=== PATIENT | male | born 1965 | race Caucasian/White ===

== ENCOUNTER → 2017-03-19 | Outpatient (CLI) | payer OTHER ==
--- NOTE | 2017-03-19 15:43 | RADIOLOGY REPORT PS360 ---
US RUQ-(ABD LTD)1ORGAN/QUAD/FU HISTORY: RUQ PAIN ORDERING PHYSICIAN: Reginald Perez MD PATIENT AGE: 51 years COMPARISON: None FINDINGS: PANCREAS:Unremarkable. No obvious mass or abnormal fluid collection. No ductal dilatation LIVER:There is increased echogenicity of the liver consistent with hepatic steatosis no focal liver lesion demonstrated. RIGHT KIDNEY:Unremarkable. Normal size and echogenicity. No hydronephrosis LEFT KIDNEY:Unremarkable. No hydronephrosis. Normal size and echogenicity. GALLBLADDER:No gallstones, gallbladder wall thickening, pericholecystic fluid, or biliary dilatation. Small amount sludge is concentrated bile is present in the gallbladder IMPRESSION: 1. Hepatic steatosis. 2. Small amount of gallbladder sludge/concentrated bile of questionable clinical significance. No gallstones evident
== END ==
LOC: RAD 07:46 → EDSEX 08:00
DX: R10.11 Right upper quadrant pain (principal)